=== PATIENT | female | born 1975 | race Caucasian/White ===

== ENCOUNTER → 2016-10-21 | Outpatient (CLI) | payer OTHER ==
[2016-10-21 12:38] LABS: THYROID STIMULATING HORMONE 0.153 uIu/ml (0.300-4.500)
== END | disposition home or self-care (01) ==
LOC: C.LAB1850 09:55
PROVIDERS: ATTEND Physician Assistant
DX: E06.3 Autoimmune thyroiditis (principal)

== ENCOUNTER → 2017-02-12 | Outpatient (CLI) | payer OTHER ==
--- NOTE | 2017-02-12 11:09 | DIAGNOSTIC IMAGING REPORT ---
THYROID ULTRASOUND HISTORY: E03.9 [id number] Butch's thyroiditis [id number] COMPARISON: Thyroid ultrasound 09/21/2008. FINDINGS: Right lobe: 4.2 x 1.1 x 1.1 cm. No nodules. Diffusely heterogeneous. Left lobe: 4.1 x 1.2 x 1.0 cm. No nodules. Diffusely heterogeneous. Isthmus: 2 mm in thickness. No nodules. IMPRESSION: Atrophic and diffusely heterogeneous thyroid gland. No definite nodules. Electronically signed by: Michael Arteaga M.D. 02/12/2017 11:08 AM Dictated Date/Time: 02/12/2017 11:06 AM
[2017-02-12 13:50] LABS: THYROID STIMULATING HORMONE 0.065 uIu/ml (0.300-4.500)
== END | disposition home or self-care (01) ==
LOC: C.ULTRBC 10:10
PROVIDERS: ATTEND Physician Assistant
DX: E03.9 Hypothyroidism, unspecified (principal); E06.3 Autoimmune thyroiditis